=== PATIENT | male | born 1965 | race Caucasian/White ===

== ENCOUNTER → 2017-10-23 | Outpatient (CLI) | payer OTHER ==
[~2017-10-23] MED LIST: CEPH500 PO; CLOT1TC TOP; DOC250 PO; HYDACE5 PO; IBUP200; IBUPROFEN; KETO15I; LAVAP4L PO; NAPR550 PO; OXYACE5T PO; PENVK500 PO; PREVPAC PO; PROM25 PO; SULTRIDS PO
== END | disposition home or self-care (01) ==
LOC: LAB SHORT 16:43 → LAB 16:43
DX: L08.0 Pyoderma (principal)
CPT/HCPCS: 87070; 87205

== ENCOUNTER → 2021-08-07 | Outpatient (CLI) | payer OTHER ==
[2021-08-07 13:48] LABS: BASOPHILS ABSOLUTE AUTO 0.11 K/mm3 (0.00-0.23); BASOPHILS PERCENT AUTO 1 % (0-2); EOSINOPHILS ABSOLUTE AUTO 0.67 K/mm3 (0.00-0.68); EOSINOPHILS PERCENT AUTO 7 % (0-6); Hematocrit 46.1 % (37.0-53.0); Hemoglobin 15.4 g/dL (13.5-17.5); IMMATURE GRAN ABSOLUTE AUTO 0.06 K/mm3 (0.00-0.10); IMMATURE GRAN PERCENT AUTO 1 % (0-1); LYMPHOCYTES ABSOLUTE AUTO 1.23 K/mm3 (0.84-5.20); LYMPHOCYTES PERCENT AUTO 12 % (21-46); MONOCYTES ABSOLUTE AUTO 0.84 K/mm3 (0.16-1.47); MONOCYTES PERCENT AUTO 9 % (4-13); Mean Corpuscular HGB 31.2 pg (26.0-34.0); Mean Corpuscular HGB Conc 33.4 g/dL (31.5-36.5); Mean Corpuscular Volume 93 fL (80-100); Mean Platelet Volume 10.9 fL (9.1-12.4); NEUTROPHILS ABSOLUTE AUTO 6.98 K/mm3 (1.96-9.15); NEUTROPHILS PERCENT AUTO 71 % (41-73); Platelet Count 207 K/mm3 (150-400); RDW Coefficient Variation 12.5 % (11.7-14.2); RDW Standard Deviation 42.6 fL (35.1-46.3); Red Blood Cell Count 4.94 M/mm3 (4.30-5.90); White Blood Cell Count 9.89 K/mm3 (4.00-11.30)
[2021-08-07 13:57] LABS: Albumin, Blood 3.6 g/dL (3.4-5.0); Bilirubin, Total 0.4 mg/dL (0.1-1.0); Calcium, Blood 8.1 mg/dL (8.5-10.1); Creatinine, Blood 0.84 mg/dL (0.60-1.20); Globulin, Blood 3.5 g/dL (2.2-4.0); Total Protein, Blood 7.1 g/dL (6.4-8.2)
== END ==
LOC: LAB SHORT 13:42
PROVIDERS: Physician Assistant
DX: R06.00 Dyspnea, unspecified (principal); T78.3XXA Angioneurotic edema, initial encounter
CPT/HCPCS: 80053; 83880; 84484; 85025; 85379

== ENCOUNTER 2022-11-04 19:29 | Emergency (ER) | payer OTHER ==
[~2022-11-04] VITALS: Ht 188 cm; Wt 127.0 kg
[2022-11-04 19:48] VITALS: BP 157/95
== END 2022-11-04 22:07 | disposition home or self-care (01) ==
LOC: ER 19:29
DX: S32.029A Unspecified fracture of second lumbar vertebra, initial encounter for closed fracture (principal); S29.012A Strain of muscle and tendon of back wall of thorax, initial encounter; S80.211A Abrasion, right knee, initial encounter; S80.212A Abrasion, left knee, initial encounter; V49.9XXA Car occupant (driver) (passenger) injured in unspecified traffic accident, initial encounter; Z79.899 Other long term (current) drug therapy; J45.909 Unspecified asthma, uncomplicated; E11.9 Type 2 diabetes mellitus without complications; Z72.0 Tobacco use
CPT/HCPCS: 71101; 72128; 72131; 96374; 99284-25; J1885

== ENCOUNTER 2023-02-21 17:01 | Inpatient (IN) | payer OTHER ==
[~2023-02-21] VITALS: Ht 188 cm; Wt 128.9 kg
[~2023-02-21 17:01] MED LIST changes: -INSULANPEN SC; -VISBIOME 112.51 EACH PO
[2023-02-21 19:20] LABS: Hematocrit 46.2 % (37.0-53.0); Hemoglobin 15.3 g/dL (13.5-17.5); Mean Corpuscular HGB 30.3 pg (26.0-34.0); Mean Corpuscular HGB Conc 33.1 g/dL (31.5-36.5); Mean Corpuscular Volume 92 fL (80-100); Mean Platelet Volume 10.1 fL (9.1-12.4); Platelet Count 166 K/mm3 (150-400); RDW Coefficient Variation 12.6 % (11.7-14.2); RDW Standard Deviation 42.1 fL (35.1-46.3); Red Blood Cell Count 5.05 M/mm3 (4.30-5.90); White Blood Cell Count 13.35 K/mm3 (4.00-11.30)
[2023-02-21 19:37] LABS: International Normalized Ratio 1.04; Prothrombin Time Results 10.9 Sec (9.7-11.5)
[2023-02-21 19:51] LABS: Albumin/Globulin Ratio 0.7 (0.8-1.8); BASOPHILS PERCENT MAN 0 % (0-2); Bilirubin, Direct 0.2 mg/dL (0.0-0.3); Bilirubin, Indirect 0.6 mg/dL (0.1-0.7); Bilirubin, Total 0.8 mg/dL (0.1-1.0); Bun/Creatinine Ratio 15.8 (12.0-20.0); Calcium, Blood 8.2 mg/dL (8.5-10.1); Creatinine, Blood 0.95 mg/dL (0.60-1.20); EOSINOPHILS PERCENT MAN 0 % (0-6); Globulin, Blood 4.6 g/dL (2.2-4.0); LYMPHOCYTES % ATYPICAL MANUAL 2 % (0-0); LYMPHOCYTES ABSOLUTE MAN 1.86 K/mm3 (0.84-5.20); LYMPHOCYTES PERCENT MAN 12 % (21-46); MONOCYTES PERCENT MAN 6 % (4-13); Magnesium, Blood 2.6 mg/dL (1.6-2.4); NEUTROPHILS ABSOLUTE MAN 10.68 K/mm3 (1.96-9.15); Phosphorus, Blood 1.9 mg/dL (2.5-4.9); Potassium, Blood 3.7 mmol/L (3.5-5.5); SEG NEUTROPHILS PERCENT MAN 80 % (41-73); TOTAL CELLS COUNTED 100; Total Protein, Blood 7.6 g/dL (6.4-8.2)
[2023-02-21 21:12] VITALS: BP 127/72
--- NOTE | 2023-02-21 21:42 | NUR ---
ARRIVAL TO PCU REPORT TAKEN FROM JOEL RN, THIS RN TO ASSUME CARE OF PT. PT ARRIVED TO PCU8 AT 2100 VIA [facility]. ALERT & ORIENTED X4, COMMUNICATING NEEDS W/ STAFF. PT SLID FROM RNEY TO BED W/ STAFF ASSIST DUE TO SIGNIFICANT RLE REDNESS AND PAIN. VSS ON ARRIVAL. SPO2 >90% ON 2L VIA NC, DENIES SOB. BP STABLE, MAP >65. HR 110'S, REGULAR HEART SOUNDS. PEDAL PULSES PRESENT ON PALPATION BILATERALLY. SENSATION INTACT. PHOTOS TAKEN OF RLE REDNESS AND WOUNDS, IN PT'S CHART. REDNESS MARKED ON ARRIVAL TO PCU. SKIN OTHERWISE INTACT. PT REPORTS THAT HE HAS BEEN ON A KETO DIET AND STOPPED TAKING ALL OF HIS MEDICATIONS/USING HOME O2. PT ORIENTED TO ROOM/UNIT, EDUCATED ON FIRE RISKS/IGNITION SOURCES. CALL LIGHT IN REACH, BED IN LOWEST POSITION.
[2023-02-21 23:32] VITALS: BP 120/64
[2023-02-22 03:47] LABS: Hematocrit 44.9 % (37.0-53.0); Hemoglobin 14.8 g/dL (13.5-17.5); Mean Corpuscular HGB 30.4 pg (26.0-34.0); Mean Corpuscular Volume 92 fL (80-100); Mean Platelet Volume 10.3 fL (9.1-12.4); Platelet Count 165 K/mm3 (150-400); RDW Coefficient Variation 12.6 % (11.7-14.2); RDW Standard Deviation 42.3 fL (35.1-46.3); Red Blood Cell Count 4.87 M/mm3 (4.30-5.90)
[2023-02-22 04:12] VITALS: BP 119/68
--- NOTE | 2023-02-22 05:02 | NUR ---
END OF SHIFT NOTE: NO ACUTE EVENTS FOLLOWING ARRIVAL TO PCU. PT HAS REMAINED A&OX4, CALLS APPROPRIATELY AND ABLE TO COMMUNICATE NEEDS W/ STAFF. HR 110-120'S, NO TELE ORDERS. BP STABLE, MAP >65. DENIES CHEST PAIN/PRESSURE. SPO2 >90% ON 2L VIA NC. PT DESATS INTO 80'S W/O O2 OVERNIGHT, DENIES FEELING SOB. TEMP UP TO 100.2, TYLENOL ADMINISTERED PER EMAR. C/O NAUSEA, MEDICATED W/ ZOFRAN AND COLD WASHCLOTH PLACED ON FOREHEAD. PT TOLERATING PO INTAKE WELL. LR CONTINUES INFUSING AT 100 ML/HR PER ORDERS. PT RESTING IN BED AT THIS TIME, INDEPENDENTLY USING URINAL W/ ADEQUATE OUTPUT. NO OTHER EVENTS. CALL LIGHT WITHIN REACH, BED IN LOWEST POSITION. WILL REPORT TO ONCOMING RN.
[2023-02-22 05:16] LABS: BAND PERCENT MAN 7 % (0-8); BASOPHILS PERCENT MAN 0 % (0-2); EOSINOPHILS PERCENT MAN 0 % (0-6); LYMPHOCYTES ABSOLUTE MAN 0.76 K/mm3 (0.84-5.20); LYMPHOCYTES PERCENT MAN 6 % (21-46); MONOCYTES ABSOLUTE MAN 0.76 K/mm3 (0.16-1.47); MONOCYTES PERCENT MAN 6 % (4-13); NEUTROPHILS ABSOLUTE MAN 11.26 K/mm3 (1.96-9.15); SEG NEUTROPHILS PERCENT MAN 81 % (41-73); TOTAL CELLS COUNTED 100
[2023-02-22 06:19] LABS: Albumin, Blood 2.7 g/dL (3.4-5.0); Albumin/Globulin Ratio 0.6 (0.8-1.8); Bilirubin, Total 0.6 mg/dL (0.1-1.0); Bun/Creatinine Ratio 14.8 (12.0-20.0); Creatinine, Blood 0.88 mg/dL (0.60-1.20); Globulin, Blood 4.3 g/dL (2.2-4.0); Potassium, Blood 3.8 mmol/L (3.5-5.5)
[2023-02-22 07:40] VITALS: BP 118/60
--- NOTE | 2023-02-22 13:41 | NUR ---
TRANSFER UPDATE REPORT GIVEN TO MED FLOOR RN AT 1315. PT TRANSFERED TO ROOM 338 AT 1340 VIA HOSPITAL BED. PT ON RA AT TIME OF TRANSFER. LR BAG TRANSFERED WITH PT, NOT RUNNING DURING TRANSFER. PT FAMILY UPDATED ON TRANSFER. PERSONAL BELONGINGS IN BADG AND TRANSFERED WITH PT. PT CHART AND MEDS IN GREEN MED BAG TRNAFERED WITH PT. PT OCCOMPANIED BY TWO BELL HOLE DIGGER AT TIME OF TRANSFER. NO N/V AT TIME OF TRANSFER.
[2023-02-22 13:53] VITALS: BP 147/89
[2023-02-22 19:40] VITALS: BP 135/87
[2023-02-23 03:37] VITALS: BP 133/82
--- NOTE | 2023-02-23 05:08 | NUR ---
SHIFT SUMMARY NOC PT A/O X 4. PLEASANT AND COOPERATIVE WITH CARE. PT HAD 2 EPISODES OF N/V AND MEDICATED PER EMAR WITH DESIRED EFFECT. PT ON 2L/NC MAINTAINING SPO2 > 92%. PT DID HAVE C/O RLE PAIN, BUT DID NOT WANT PAIN RX. PT CALLED TO GET UPDATE ON PT CONDITION, REPORTED THAT SHE ALSO HAS RLE CELLULITIS, BUT NOT TO THE SAME EXTENT. PT CBG 202 AND CNI, BUT GLARGINE 10 UNITS SCHEDULED WAS GIVEN. PT HAS INFUSION OF LR @ 150 ML/HR GOING UNTIL 0800 TODAY. PT HAS HAD EXCELLENCT URINE OUTPUT DURING SHIFT. PT IS CURRENTLY RESTING WITH BED IN LOWEST POSITION, AND CALL LIGHT WITHIN REACH.
[2023-02-23 07:37] VITALS: BP 124/73
--- NOTE | 2023-02-23 16:07 | NUR ---
NOTE: PATIENT REPORTS "HEARTBURN". NOTIFIED DR. COFFEY REGARDING THIS ISSUE. RECEIVED ORDER TO GIVE TUMS 500 MG PO Q4 HRS PRN.
[2023-02-23 16:53] VITALS: BP 118/77
--- NOTE | 2023-02-23 18:18 | NUR ---
SHIFT SUMMARY: PATIENT A/OX4, CALM, PLEASANT AND COOPERATIVE c CARE PROVIDED. PATIENT DENIES CP/PRESSURE, DIZZINESS AND SOB. PATIENT REPORTS NAUSEA AND HEARTBURN, MEDICATED c PRN NAUSEA/HEARTBURN MEDS c GOOD EFFECT. PATIENT ON 2L OF O2 VIA NC c SPO2 RANGES 93-95%, LUNGS WHEEZY T/O TO AUSCULTATION. R LEG SWELLING AND REDNESS SLIGHTLY IMPROVED BASED ON THE OUTLINE MARKINGS AND ELEVATED ON PILLOWS T/O SHIFT. PATIENT OVERGROWNED TOE NAILS, DR. DODD CAME AND CUT PATIENT TOE NAILS THIS PM. PATIENT RECEIVED BEDBATH AND LINEN CHANGED, EATING AND DRINKING WELL, CONTINENCE OF BLADDER AND USES URINAL IN BED INDEPNDENTLY T/O SHIFT. PATIENT RECEIVED IV ABX AND SCHEDULED MEDS PER EMAR. PATIENT BS RANGES 176-193, RECEIVED INSULIN COVERAGE PER EMAR. VITAL SIGNS REVIEWED. PIV TO R/L AC SALINE LOCKED. CALL LIGHT IN REACH.
[2023-02-23 20:07] VITALS: BP 148/77
--- NOTE | 2023-02-24 03:55 | NUR ---
SHIFT SUMMARY PT A&O X4, CALM AND COOPERATIVE WITH CARE. PT CURRENTLY ON 2 L 02 VIA SD, SATS ABOVE 92%. PT DENIES ANY CHEST PAIN OR SOB. LUNGS WHEEZY UPON AUSCULTATION. RIGHT LEG REDNESS IMPROVING BASED ON MARKINGS. AREAS OF WHITE NOTICED WITHIN THE REDNESS. RIGHT LEG ELEVATED ON PILLOWS. PT COMPLAINED OF NAUSEA MEDICATED PER EMAR. REQUESTED TUMS FOR HEARTBURN. PT HAD TROUBLE FALLING ASLEEP. ORDERED MELATONIN. PT CONTINENT AND USING URINAL INDEPENDENTLY. HS BLOOD SUGAR 201 MEDICATED PER EMAR. BED KEPT IN LOWEST POSITION WITH CALL LIGHT WITHIN REACH. PT CALLS APPROPRIATELY FOR NEEDS. WILL CONTINUE TO MONITOR.
[2023-02-24 04:19] VITALS: BP 140/84
[2023-02-24 06:27] LABS: Hematocrit 40.1 % (37.0-53.0); Hemoglobin 13.2 g/dL (13.5-17.5); Mean Corpuscular HGB 29.9 pg (26.0-34.0); Mean Corpuscular HGB Conc 32.9 g/dL (31.5-36.5); Mean Corpuscular Volume 91 fL (80-100); Platelet Count 207 K/mm3 (150-400); RDW Coefficient Variation 12.4 % (11.7-14.2); RDW Standard Deviation 41.3 fL (35.1-46.3); Red Blood Cell Count 4.41 M/mm3 (4.30-5.90)
[2023-02-24 06:37] VITALS: BP 125/67
[2023-02-24 06:42] LABS: Bun/Creatinine Ratio 20.1 (12.0-20.0); Calcium, Blood 7.9 mg/dL (8.5-10.1); Creatinine, Blood 0.55 mg/dL (0.60-1.20); Potassium, Blood 3.7 mmol/L (3.5-5.5)
[2023-02-24 07:55] VITALS: BP 143/85
[2023-02-24 16:24] VITALS: BP 150/90
--- NOTE | 2023-02-24 18:09 | NUR ---
SHIFT SUMMARY: PATIENT A/OX4, CALM, PLEASANT AND COOPERATIVE c CARE. PATIENT USES CALL LIGHT APPROPRIATELY AND ABLE TO MAKE NEEDS KNOWN. PATIENT REDNESS TO R UPPER LEG/GROIN AREA HAS IMPROVED BASED ON OUTLINE MARKING, BUT ON THE R LOWER LEG STILL VERY RED, APPEARS BLISTER OR FLUID FILLED AREAS ALL OVER AND SOME AREAS ARE OPEN, DRAINING CLEAR YELLOW FLUID. DISPOSABLE CHUX PADS PLACED UNDER R LEG AND ELEVATED ON PILLOWS T/O SHIFT. PATIENT BS RANGES 191-225, MEDICATED c INSULIN COVERAGE, RECEIVED IV ABX AND SCHEDULED MEDS PER EMAR. PATIENT HAS EXCELLENT APPETITE, CONTINENCE OF BLADDER AND USES URINAL/BSC INDEPENDENTLY. PIV TO R/L AC SALINE LOCKED. VITAL SIGNS REVIEWED. CALL LIGHT IN REACH.
[2023-02-24 20:04] VITALS: BP 139/84
[2023-02-25 02:49] VITALS: BP 137/76
--- NOTE | 2023-02-25 03:26 | NUR ---
SHIFT SUMMARY PT A&O X4, CALM AND COOPERATIVE WITH CARE. PT RIGHT LEG STILL VERY RED BUT RECEEDING FROM MARKINGS. LOWER RIGHT EXTREMITY HAS BLISTERS AND IS WHEEPING. DISPOSABLE CHUCKS PLACED UNDER LEGS AND CHANGED FREQUENTLY. LEGS KEPT ELEVATED T/O THE NIGHT. PT CURRENTLY ON 2L O2 VIA NC WITH SATS KEPT ABOVE 95%. CONTINENT OF URINE AND USES URINAL INDEPENDENTLY. PT CBG 233 AT HS. PT APPETITE IS VERY WELL. BED KEPT IN LOWEST POSITION IWTH CALL LIGHT WITHIN REACH. WILL CONTINUE TO MONITOR UNTIL END OF SHIFT.
[2023-02-25 07:32] VITALS: BP 128/81
[2023-02-25 15:28] VITALS: BP 141/80
--- NOTE | 2023-02-25 18:11 | NUR ---
SHIFT SUMMARY: PATIENT A/OX4, CALM, PLEASANT AND COOPERATIVE c CARE. PATIENT USES CALL LIGHT APPROPRIATELY AND ABLE TO MAKE NEEDS KNOWN. PATIENT REPORTS NUMBNESS TO R LEG D/T BEING STATIONARY AND ELEVATED T/O THE DAY. THIS RN EDUCATE PATIENT IF HE CAN PERFORM R LEG EXERCISE OR SOME MOVEMENTS WHILE IN BED TO KEEP CIRCULATION GOING. PER PATIENT "I DID NOT KNOW I THOUGHT I JUST NEED TO KEEP MY LEG STRAIGHT AND ELEVATED ON THIS PILLOW." PATIENT VERBALIZES UNDERSTANDING. PATIENT REPORTS LATER THE SHIFT "THE MOVEMENTS AND EXERCISE IN BED HELPS c THE NUMBNESS." R LOWER LEG REDNESS, COVERED c BLISTER AND CONTINUES TO BE WHEEPING, DISPOSSABLE CHUX PLACED UNDER R LEG AND CHUX HAS CHANGED MULTIPLE TIMES T/O SHIFT. R LEG ELEVATED ON PILLOWS. PATIENT BS RANGES 200-251, RECEIVED INSULIN COVERAGE, IV ABX AND SCHEDULED MEDS PER EMAR. PATIENT DENIES CP/PRESSURE, SOB AND DIZZINESS. PATIENT CONTINENCE OF URINE AND USES URINAL INDEPENDENTLY. VITAL SIGNS REVIEWED. CALL LIGHT IN REACH.
[2023-02-25 19:46] VITALS: BP 141/85
[2023-02-26 03:25] VITALS: BP 148/85
--- NOTE | 2023-02-26 03:26 | NUR ---
SHIFT SUMMARY PT A&O X4, CALM AND COOPERATIVE WITH CARE. CBG AT HS 239. RECEIVED SCHEDULED ABX AND MEDS. PT DENIES ANY PAIN AT THIS TIME. RIGHT LEG ELEVATED ON DISPOSABLE CHUX D/T WHEEPING. CHANGED MULTIPLE TIMES T/O SHIFT. REDNESS RECEEDING FROM MARKED AREA BUT CONTAINS MANY BLISTERS. PT IS CONTINENT AND USES URINAL IND. 1P ASSIST TO BSC. PT CURRENTLY ON 2L O2 VIA NC WITH SATS ABOVE 90%. PT DENIES ANY SOB, CP OR PRESSURE AT THIS TIME. BED KEPT IN LOWEST POSITION IWTH CALL LIGHT WITHIN REACH. PT CALLS APPROPRAITELY FOR NEEDS.
[2023-02-26 05:53] LABS: BASOPHILS ABSOLUTE AUTO 0.09 K/mm3 (0.00-0.23); BASOPHILS PERCENT AUTO 1 % (0-2); EOSINOPHILS ABSOLUTE AUTO 0.49 K/mm3 (0.00-0.68); EOSINOPHILS PERCENT AUTO 6 % (0-6); Hematocrit 43.3 % (37.0-53.0); Hemoglobin 14.1 g/dL (13.5-17.5); IMMATURE GRAN ABSOLUTE AUTO 0.34 K/mm3 (0.00-0.10); IMMATURE GRAN PERCENT AUTO 4 % (0-1); LYMPHOCYTES ABSOLUTE AUTO 1.62 K/mm3 (0.84-5.20); LYMPHOCYTES PERCENT AUTO 19 % (21-46); MONOCYTES ABSOLUTE AUTO 0.79 K/mm3 (0.16-1.47); MONOCYTES PERCENT AUTO 9 % (4-13); Mean Corpuscular HGB Conc 32.6 g/dL (31.5-36.5); Mean Corpuscular Volume 92 fL (80-100); Mean Platelet Volume 9.8 fL (9.1-12.4); NEUTROPHILS ABSOLUTE AUTO 5.13 K/mm3 (1.96-9.15); NEUTROPHILS PERCENT AUTO 61 % (41-73); Platelet Count 275 K/mm3 (150-400); RDW Coefficient Variation 12.4 % (11.7-14.2); RDW Standard Deviation 41.8 fL (35.1-46.3); White Blood Cell Count 8.46 K/mm3 (4.00-11.30)
[2023-02-26 06:13] LABS: Bun/Creatinine Ratio 16.8 (12.0-20.0); Calcium, Blood 8.1 mg/dL (8.5-10.1); Creatinine, Blood 0.54 mg/dL (0.60-1.20); Potassium, Blood 4.1 mmol/L (3.5-5.5)
[2023-02-26 07:37] VITALS: BP 132/80
[2023-02-26] MEDS ORDERED: VISBIOME 112.51 EACH PO (13:54)
[2023-02-26] MEDS ORDERED: CEPH500 PO (13:54)
[2023-02-26] MEDS ORDERED: INSULANPEN SC (13:54)
--- NOTE | 2023-02-26 15:37 | NUR ---
DISCHARGE INSTRUCTIONS COMPLETED AND DISCUSSED WITH PT EXPRESSING UNDERSTANDING. SCRIPTS FAXED TO [facility]. OBTAINED A SCRIPT FOR GLUCOMETER AND STRIPS FOR MONITERING WELL. DR. DOMÍNGUEZ IN ROOM THIS MORNING AND POPPED BLISTERS PER MD FOR DRAINAGE AND THEN DRESSED WOUND. TO CURB VIA W/C. WITH DRIVING HIM HOME.
== END 2023-02-26 14:54 | disposition home health service (06) | DRG 872 ==
LOC: ER 17:01 → MEDS 19:24 → PCU 19:24 → MEDS 02-22 13:51 → ENPENDDIS 02-26 12:13 → MEDS 02-26 14:54
PROVIDERS: Emergency Medicine; Internal Medicine; Nurse Practitioner Acute Care; ADMIT Student in an Organized Health Care Education/Training Program
DX: A41.9 Sepsis, unspecified organism (principal); L03.115 Cellulitis of right lower limb; E87.1 Hypo-osmolality and hyponatremia; E87.3 Alkalosis; I10 Essential (primary) hypertension; R65.20 Severe sepsis without septic shock; E11.65 Type 2 diabetes mellitus with hyperglycemia; J45.909 Unspecified asthma, uncomplicated; E11.649 Type 2 diabetes mellitus with hypoglycemia without coma; F12.90 Cannabis use, unspecified, uncomplicated; F10.90 Alcohol use, unspecified, uncomplicated; Z79.4 Long term (current) use of insulin; Z87.891 Personal history of nicotine dependence; I87.8 Other specified disorders of veins
CPT/HCPCS: 36415; 71045; 73590; 80048; 80053; 82248; 82947; 83036; 83605; 83735; 84100; 85025; 85027; 85610; 85730; 87040; 93005; 93010; 94640; 94664; 94760; 96361; 96374; 99285-25; A9270; C9113; G0008; J0690; J0692; J1650; J1815; J2270; J2405; J2765; J3370; J7030; J7050; J7120; Q2036

== ENCOUNTER → 2023-02-21 | Outpatient (CLI) | payer OTHER ==
[~2023-02-21] MED LIST changes: +INSULANPEN SC; +VISBIOME 112.51 EACH PO
[2023-02-21 15:27] LABS: BASOPHILS ABSOLUTE AUTO 0.05 K/mm3 (0.00-0.23); BASOPHILS PERCENT AUTO 0 % (0-2); EOSINOPHILS ABSOLUTE AUTO 0.01 K/mm3 (0.00-0.68); EOSINOPHILS PERCENT AUTO 0 % (0-6); Hematocrit 48.2 % (37.0-53.0); Hemoglobin 16.4 g/dL (13.5-17.5); IMMATURE GRAN ABSOLUTE AUTO 0.13 K/mm3 (0.00-0.10); IMMATURE GRAN PERCENT AUTO 1 % (0-1); LYMPHOCYTES PERCENT AUTO 6 % (21-46); MONOCYTES ABSOLUTE AUTO 0.79 K/mm3 (0.16-1.47); MONOCYTES PERCENT AUTO 5 % (4-13); Mean Corpuscular HGB 30.8 pg (26.0-34.0); Mean Corpuscular Volume 90 fL (80-100); Mean Platelet Volume 10.3 fL (9.1-12.4); NEUTROPHILS ABSOLUTE AUTO 12.85 K/mm3 (1.96-9.15); NEUTROPHILS PERCENT AUTO 88 % (41-73); Platelet Count 179 K/mm3 (150-400); RDW Coefficient Variation 12.8 % (11.7-14.2); RDW Standard Deviation 41.8 fL (35.1-46.3); Red Blood Cell Count 5.33 M/mm3 (4.30-5.90); White Blood Cell Count 14.63 K/mm3 (4.00-11.30)
[2023-02-21 15:38] LABS: Albumin, Blood 3.4 g/dL (3.4-5.0); Albumin/Globulin Ratio 0.7 (0.8-1.8); Bun/Creatinine Ratio 10.9 (12.0-20.0); Calcium, Blood 8.8 mg/dL (8.5-10.1); Creatinine, Blood 1.28 mg/dL (0.60-1.20); Globulin, Blood 4.6 g/dL (2.2-4.0); Potassium, Blood 3.9 mmol/L (3.5-5.5)
== END ==
LOC: LAB 15:21 → LAB SHORT 15:21
PROVIDERS: Physician Assistant
DX: L03.115 Cellulitis of right lower limb (principal)
CPT/HCPCS: 80053; 85025